=== PATIENT | male | born 1950 | race Caucasian/White ===

== ENCOUNTER 2019-04-21 19:12 | Outpatient (REF) | payer MEDICARE, SELFPAY ==
[2019-04-21 21:57] LABS: BUN 14 mg/dL (7-18); CREATININE 1.27 mg/dL (0.70-1.30); Calcium 9.4 mg/dL (8.5-10.1); Chloride 106 mmol/L (98-107); Glucose 115 mg/dL (70-100); Potassium 4.7 mmol/L (3.5-5.1); Sodium 141 mmol/L (136-145); Uric Acid 5.9 mg/dL (3.5-7.2)
== END 2019-04-21 19:32 ==
LOC: NCHCN 19:12
PROVIDERS: PCP Specialist/Technologist Athletic Trainer; Visit Provider Nurse Practitioner Family
DX: I10 Essential (primary) hypertension (principal); M10.9 Gout, unspecified
CPT/HCPCS: 80048; 84550

== ENCOUNTER 2020-06-09 17:32 | Outpatient (REF) | payer MEDICARE, SELFPAY ==
[2020-06-09 20:26] LABS: ALT 98 U/L (16-63); AST 61 U/L (15-37); Alkaline Phosphatase 83 U/L (46-116); Anion Gap 7.2 mmol/L (3-11); BUN 16 mg/dL (7-18); Bilirubin, Total 1.7 mg/dL (0.2-1.0); CO2 26.8 mmol/L (21.0-32.0); CREATININE 1.09 mg/dL (0.70-1.30); Calcium 9.3 mg/dL (8.5-10.1); Calculated LDL 78 mg/dL (<100); Chloride 102 mmol/L (98-107); Cholesterol 164 mg/dL (<200); Glucose 130 mg/dL (74-106); HDL Cholesterol 31 mg/dL (40-60); Potassium 4.7 mmol/L (3.5-5.1); Sodium 136 mmol/L (136-145); Total Protein 7.4 g/dL (6.4-8.2); Triglyceride 276 mg/dL (<150)
[2020-06-09 20:37] LABS: Albumin 4.2 g/dL (3.4-5.0)
[2020-06-09 20:43] LABS: Hemoglobin A1C 6.3 % (<5.7)
== END 2020-06-09 17:52 ==
LOC: NCHCN 17:32
PROVIDERS: PCP Specialist/Technologist Athletic Trainer; Visit Provider Physician Assistant Medical
DX: R73.9 Hyperglycemia, unspecified (principal); I10 Essential (primary) hypertension
CPT/HCPCS: 80053; 80061; 83036

== ENCOUNTER 2021-08-05 10:28 | Outpatient (REF) | payer MEDICARE, SELFPAY ==
[2021-08-05 14:52] LABS: Abs Immature Grans 0.01 10^3/uL (0.0-0.06); Absolute Basophil Count 0.05 10^3/uL (0.0-0.2); Absolute Eosinophil Count 0.27 10^3/uL (0.0-0.7); Absolute Lymphocyte Count 0.82 10^3/uL (1.2-3.4); Absolute Monocyte Count 0.35 10^3/uL (0.1-0.8); Absolute Neutrophil Count 2.73 10^3/uL (1.2-6.7); Basophils % 1.2; Eosinophils % 6.4; HCT 44.3 % (40.0-50.0); HGB 15.1 g/dL (13.5-17.5); Immature Grans % 0.2; Lymphocytes % 19.4; MCH 30.4 pg (27.0-33.0); MCHC 34.1 % (32.0-36.0); MCV 89.1 fL (80-95); MPV 10.6 fL (8.0-11.0); Monocytes % 8.3; Neutrophils % 64.5; Nucleated RBC 0 %; Platelet Count 256 10^3/uL (130-400); RBC 4.97 10^6/uL (4.36-5.78); RDW 12.9 % (11.8-14.1); RDW-SD 42.1 fL; WBC 4.23 10^3/uL (4.4-10.8)
[2021-08-05 15:21] LABS: Hemoglobin A1C 6.7 % (<5.7)
[2021-08-05 15:32] LABS: ALT 68 U/L (16-63); AST 40 U/L (15-37); Albumin 4.2 g/dL (3.4-5.0); Alkaline Phosphatase 89 U/L (46-116); Anion Gap 10.5 mmol/L (3-11); BUN 17 mg/dL (7-18); Bilirubin, Total 1.5 mg/dL (0.2-1.0); CO2 24.5 mmol/L (21.0-32.0); CREATININE 1.3 mg/dL (0.70-1.30); Calcium 8.9 mg/dL (8.5-10.1); Calculated LDL 114 mg/dL (<100); Chloride 102 mmol/L (98-107); Cholesterol 182 mg/dL (<200); Estimated GFR 54.57 (mL/min/1.73m2); Glucose 186 mg/dL (74-106); HDL Cholesterol 40 mg/dL (40-60); Potassium 4.7 mmol/L (3.5-5.1); Sodium 137 mmol/L (136-145); Total Protein 7.2 g/dL (6.4-8.2); Triglyceride 140 mg/dL (<150)
[2021-08-05 16:02] LABS: Amylase 58 U/L (25-115); Lipase 185 U/L (73-393)
[2021-08-08 09:55] LABS: Anaplasma phagocytophilum Negative (Negative); B. miyamotoi PCR Negative (Negative); Babesia divergens/MO-1 Negative (Negative); Babesia duncani Negative (Negative); Babesia microti Negative (Negative); Ehrlichia chaffeensis Negative (Negative); Ehrlichia ewingii/canis Negative (Negative); Ehrlichia muris eauclairensis Negative (Negative)
[2021-08-08 11:30] LABS: Lyme Ab w Rflx to Lyme Confirm Negative (Negative)
== END 2021-08-05 10:29 | disposition home or self-care (01) ==
LOC: NCHCN 10:28
PROVIDERS: PCP Specialist/Technologist Athletic Trainer; Visit Provider Physician Assistant Medical
DX: R79.89 Other specified abnormal findings of blood chemistry (principal); R73.03 Prediabetes; R11.0 Nausea
CPT/HCPCS: 80053; 80061; 83690; 87798; 82150; 83036; 85025; 86618

== ENCOUNTER 2022-06-14 18:39 | Outpatient (REF) | payer MEDICARE, SELFPAY ==
[2022-06-14 21:32] LABS: HCT 43.8 % (40.0-50.0); HGB 15.3 g/dL (13.5-17.5); MCH 30.4 pg (27.0-33.0); MCHC 34.9 % (32.0-36.0); MCV 87 fL (80-95); MPV 10.5 fL (8.0-11.0); Platelet Count 249 10^3/uL (130-400); RBC 5.04 10^6/uL (4.36-5.78); RDW 13.2 % (11.8-14.1); RDW-SD 42.1 fL; WBC 5.77 10^3/uL (4.4-10.8)
[2022-06-14 21:50] LABS: ALT 59 U/L (16-63); AST 42 U/L (15-37); Albumin 4.2 g/dL (3.4-5.0); Alkaline Phosphatase 83 U/L (46-116); Anion Gap 10.2 mmol/L (3-11); BUN 20 mg/dL (7-18); Bilirubin, Total 1.6 mg/dL (0.2-1.0); CO2 23.8 mmol/L (21.0-32.0); CREATININE 1.3 mg/dL (0.70-1.30); Calcium 8.9 mg/dL (8.5-10.1); Chloride 101 mmol/L (98-107); Estimated GFR 58.73 (mL/min/1.73m2); Glucose 130 mg/dL (74-106); Potassium 4.3 mmol/L (3.5-5.1); Sodium 135 mmol/L (136-145); Total Protein 7.6 g/dL (6.4-8.2)
[2022-06-14 21:56] LABS: Hemoglobin A1C 6.6 % (<5.7)
== END 2022-06-14 18:40 | disposition home or self-care (01) ==
LOC: NCHCN 18:39
PROVIDERS: PCP Specialist/Technologist Athletic Trainer; Visit Provider Physician Assistant Medical
DX: R73.03 Prediabetes (principal); I10 Essential (primary) hypertension; R79.89 Other specified abnormal findings of blood chemistry
CPT/HCPCS: 80053; 85027; 83036

== ENCOUNTER → 2022-07-03 02:11 | Outpatient (CLI) | payer MEDICARE, SELFPAY ==
--- NOTE | 2022-07-03 07:00 | DI.US_ITS ---
Exam(s) US ABDOMEN LIMITED EXAM: US ABDOMEN LIMITED CLINICAL HISTORY: ELEVATED LFTS, R79.89 TECHNIQUE: Ultrasound abdomen performed using standard protocol. COMPARISON: No exams were available for comparison FINDINGS: LIVER: Enlarged at 7.2 cm. Markedly increased echogenicity and decreased through transmission consis tent with severe fatty infiltration. Posterior portions of the liver could not be visualized. No fo aram liver lesions are seen.. GALLBLADDER: Status post cholecystectomy.. TOLEDO'S SIGN: Negative. BILIARY SYSTEM: No intrahepatic or extrahepatic biliary ductal dilation. RIGHT KIDNEY: Normal size. No evidence of renal calculi. No evidence of hydronephrosis. No suspicious renal mass. No cyst identified. PANCREAS: Normal where visualized. ABDOMINAL AORTA AND IVC: Visualized portions normal caliber. ASCITES: None seen. IMPRESSION: Status post cholecystectomy. Severe hepatic steatosis. DATA REPOSITORY:
== END ==
PROVIDERS: PCP Specialist/Technologist Athletic Trainer; Visit Provider Physician Assistant Medical
DX: R79.89 Other specified abnormal findings of blood chemistry (principal); K76.0 Fatty (change of) liver, not elsewhere classified; Z90.49 Acquired absence of other specified parts of digestive tract
CPT/HCPCS: 76705

== ENCOUNTER 2023-07-17 18:37 | Outpatient (REF) | payer MEDICARE, SELFPAY ==
[2023-07-17 18:39] LABS: HCT 41.5 % (40.0-50.0); HGB 14.9 g/dL (13.5-17.5); MCH 30.2 pg (27.0-33.0); MCHC 35.9 % (32.0-36.0); MCV 84 fL (80-95); MPV 10.2 fL (8.0-11.0); Platelet Count 280 10^3/uL (130-400); RBC 4.93 10^6/uL (4.36-5.78); RDW 12.9 % (11.8-14.1); RDW-SD 39.2 fL; WBC 4.61 10^3/uL (4.4-10.8)
[2023-07-17 18:53] LABS: ALT 63 U/L (16-63); AST 42 U/L (15-37); Albumin 3.9 g/dL (3.4-5.0); Alkaline Phosphatase 90 U/L (46-116); Anion Gap 9.1 mmol/L (3-11); BUN 17 mg/dL (7-18); Bilirubin, Total 1.8 mg/dL (0.2-1.0); CO2 26.9 mmol/L (21.0-32.0); CREATININE 1.3 mg/dL (0.70-1.30); Calcium 9.7 mg/dL (8.5-10.1); Calculated LDL 70 mg/dL (<100); Chloride 99 mmol/L (98-107); Cholesterol 171 mg/dL (<200); Estimated GFR 58.37 (mL/min/1.73m2); Glucose 253 mg/dL (74-106); HDL Cholesterol 34 mg/dL (40-60); Potassium 4.2 mmol/L (3.5-5.1); Sodium 135 mmol/L (136-145); Total Protein 7.5 g/dL (6.4-8.2); Triglyceride 335 mg/dL (<150)
[2023-07-17 19:06] LABS: Uric Acid 5.4 mg/dL (3.5-7.2)
[2023-07-17 19:08] LABS: Hemoglobin A1C 7.6 % (<5.7)
== END 2023-07-17 18:38 | disposition home or self-care (01) ==
LOC: NCHCN 18:37
PROVIDERS: PCP Physician Assistant Medical; Visit Provider Physician Assistant Medical
DX: R73.03 Prediabetes (principal); M10.9 Gout, unspecified; Z78.9 Other specified health status; R79.89 Other specified abnormal findings of blood chemistry
CPT/HCPCS: 80053; 80061; 84153; 85027; 83036; 84550

== ENCOUNTER 2023-07-18 19:40 | Outpatient (REF) | payer MEDICARE, SELFPAY ==
[2023-07-18 20:04] LABS: Uric Acid 4.8 mg/dL (3.5-7.2)
[2023-07-19 20:38] LABS: PSA, Screening 1.9 ng/mL (<=6.5)
== END 2023-07-18 19:41 | disposition home or self-care (01) ==
LOC: NCHCN 19:40
PROVIDERS: PCP Physician Assistant Medical; Visit Provider Physician Assistant Medical
DX: N40.0 Benign prostatic hyperplasia without lower urinary tract symptoms (principal); M10.9 Gout, unspecified; Z12.5 Encounter for screening for malignant neoplasm of prostate
CPT/HCPCS: 84153; 84550

== ENCOUNTER 2023-12-19 19:03 | Outpatient (REF) | payer MEDICARE, SELFPAY ==
[2023-12-19 15:41] LABS: ALT 46 U/L (16-63); AST 27 U/L (15-37); Alkaline Phosphatase 78 U/L (46-116); Anion Gap 11.3 mmol/L (3-11); BUN 19 mg/dL (7-18); Bilirubin, Total 1.7 mg/dL (0.2-1.0); CO2 24.7 mmol/L (21.0-32.0); CREATININE 1.2 mg/dL (0.70-1.30); Calcium 9.7 mg/dL (8.5-10.1); Calculated LDL 29 mg/dL (<100); Chloride 103 mmol/L (98-107); Cholesterol 109 mg/dL (<200); Estimated GFR 63.85 (mL/min/1.73m2); Glucose 220 mg/dL (74-106); HDL Cholesterol 40 mg/dL (40-60); Potassium 4.5 mmol/L (3.5-5.1); Sodium 139 mmol/L (136-145); Total Protein 7.4 g/dL (6.4-8.2); Triglyceride 204 mg/dL (<150)
[2023-12-19 15:56] LABS: Hemoglobin A1C 6.3 % (<5.7)
== END 2023-12-19 19:04 | disposition home or self-care (01) ==
LOC: NCHCN 19:03
PROVIDERS: PCP Physician Assistant Medical; Visit Provider Physician Assistant Medical
DX: E78.5 Hyperlipidemia, unspecified (principal); E11.9 Type 2 diabetes mellitus without complications
CPT/HCPCS: 80053; 80061; 83036

== ENCOUNTER 2024-05-28 17:21 | Outpatient (REF) | payer MEDICARE, SELFPAY ==
[2024-05-28 19:45] LABS: Abs Immature Grans 0.01 10^3/uL (0.0-0.06); Absolute Basophil Count 0.07 10^3/uL (0.0-0.2); Absolute Lymphocyte Count 0.98 10^3/uL (1.2-3.4); Absolute Monocyte Count 0.44 10^3/uL (0.1-0.8); Absolute Neutrophil Count 2.55 10^3/uL (1.2-6.7); Basophils % 1.6 %; HCT 42.1 % (40.0-50.0); HGB 14.2 g/dL (13.5-17.5); Immature Grans % 0.2 %; MCH 29.8 pg (27.0-33.0); MCHC 33.7 % (32.0-36.0); MCV 88 fL (80-95); Monocytes % 9.9 %; Neutrophils % 57.3 %; Platelet Count 260 10^3/uL (130-400); RBC 4.76 10^6/uL (4.36-5.78); RDW 13.1 % (11.8-14.1); RDW-SD 42.6 fL; WBC 4.45 10^3/uL (4.4-10.8)
[2024-05-28 19:57] LABS: ALT 44 U/L (16-63); AST 26 U/L (15-37); Albumin 4.1 g/dL (3.4-5.0); Alkaline Phosphatase 93 U/L (46-116); Anion Gap 9.7 mmol/L (3-11); BUN 17 mg/dL (7-18); Bilirubin, Total 2.05 mg/dL (0.2-1.0); CO2 26.3 mmol/L (21.0-32.0); CREATININE 1.4 mg/dL (0.70-1.30); Calcium 9.3 mg/dL (8.5-10.1); Chloride 103 mmol/L (98-107); Estimated GFR 53.07 (mL/min/1.73m2); Glucose 134 mg/dL (74-106); Potassium 4.5 mmol/L (3.5-5.1); Sodium 139 mmol/L (136-145); Total Protein 7.2 g/dL (6.4-8.2); Uric Acid 4.2 mg/dL (3.5-7.2)
[2024-05-28 20:01] LABS: Hemoglobin A1C 6.5 % (<5.7)
== END 2024-05-28 17:22 | disposition home or self-care (01) ==
LOC: NCHCN 17:21
PROVIDERS: PCP Physician Assistant Medical; Visit Provider Physician Assistant Medical
DX: E11.9 Type 2 diabetes mellitus without complications (principal); M10.9 Gout, unspecified
CPT/HCPCS: 80053; 83036; 84550; 85025

== ENCOUNTER 2025-06-24 17:21 | Outpatient (REF) | payer MEDICARE, SELFPAY ==
[2025-06-24 20:39] LABS: ALT 52 U/L (16-63); AST 25 U/L (15-37); Albumin 4.2 g/dL (3.4-5.0); Alkaline Phosphatase 95 U/L (46-116); Anion Gap 15.1 mmol/L (3-11); BUN 15 mg/dL (7-18); Bilirubin, Total 2.2 mg/dL (0.2-1.0); CO2 22.9 mmol/L (21.0-32.0); Calcium 8.8 mg/dL (8.5-10.1); Calculated LDL 35 mg/dL (<100); Chloride 99 mmol/L (98-107); Cholesterol 111 mg/dL (<200); Estimated GFR 57.65 (mL/min/1.73m2); Glucose 187 mg/dL (74-106); HDL Cholesterol 36 mg/dL (>or=40); Potassium 4.1 mmol/L (3.5-5.1); Sodium 137 mmol/L (136-145); Total Protein 7.1 g/dL (6.4-8.2); Triglyceride 204 mg/dL (<150)
[2025-06-24 20:59] LABS: Uric Acid 3.6 mg/dL (3.5-7.2)
[2025-06-24 21:15] LABS: Hemoglobin A1C 6.6 % (<5.7)
[2025-06-24 21:47] LABS: COMMENT (LAB VIEW ONLY) 171.22 mg/dL; Microalb ug/mg Crea 56.9 ug/mg Cr
[2025-06-25 17:38] LABS: PSA, Screening 1.8 ng/mL (<=6.5)
== END 2025-06-24 17:22 | disposition home or self-care (01) ==
LOC: NCHCN 17:21
PROVIDERS: PCP Physician Assistant Medical; Visit Provider Physician Assistant Medical
DX: E11.9 Type 2 diabetes mellitus without complications (principal); I10 Essential (primary) hypertension; N40.1 Benign prostatic hyperplasia with lower urinary tract symptoms; M10.9 Gout, unspecified
CPT/HCPCS: 80053; 80061; 84153; 82043; 82570; 83036; 84550